=== PATIENT | female | born 1970 | race Hispanic/Latino ===

== ENCOUNTER → 2024-03-09 | Outpatient (CLI) | payer BC ==
--- NOTE | 2024-03-10 10:19 | HMCIMG ---
PROCEDURE: MAMMO DX BILATERAL HISTORY: Inconclusive mammogram COMPARISON: 03/09/2024 TECHNIQUE: Bilateral digital diagnostic mammogram with CAD was performed. No additional views were obtained. FINDINGS: The breasts are heterogeneously dense, which may obscure small masses. There is no evidence of a dominant mass, or suspicious microcalcification. There is no evidence of nipple retraction or skin thickening. IMPRESSION: 1. Stable mammogram. BI-RADS: CATEGORY 2: BENIGN FINDINGS Recommend monthly self breast exam as well as annual clinical examination. A negative x-ray should not delay biopsy if a dominant or clinically suspicious mass is present, since 8-10% of cancers are not identified by mammography. Dense breasts particularly, may obscure an underlying neoplasm. Some of these may be detected clinically and therefore, clinical examination is an essential part of breast evaluation.
--- NOTE | 2024-03-10 12:34 | HMCIMG ---
US BREAST BILATERAL REASON: ABN MAMMO. COMPARISON: Mammogram from the same day TECHNIQUE: Bilateral breast ultrasound study was performed. FINDINGS: Hypoechoic nodule is seen at 10:00 of right breast measuring 4 x 3 x 7 mm may be related to a lymph node. No other cystic or hypoechoic mass is seen. There are bilateral axillary lymph nodes with right measuring 2.3 x 1 0.5 to 1.9 cm and left measuring 2.6 x 1.1 x 2.6 cm. IMPRESSION: Intramammary lymph node suspected at 10:00 right breast. Six-month follow-up study is recommended. CATEGORY 3: PROBABLE BENIGN-SHORT INTERVAL FOLLOWUP SUGGESTED Recommend monthly self breast exam as well as annual clinical examination.
== END | disposition home or self-care (01) ==
LOC: RAH 12:54
PROVIDERS: ATTEND Family Medicine
DX: N63.11 Unspecified lump in the right breast, upper outer quadrant (principal); R92.333 Mammographic heterogeneous density, bilateral breasts; R92.8 Other abnormal and inconclusive findings on diagnostic imaging of breast
CPT/HCPCS: 77066